=== PATIENT | male | born 1985 | race Caucasian/White ===

== ENCOUNTER 2022-07-21 12:15 | Emergency (ER) | payer OTHER ==
[~2022-07-21] VITALS: Ht 182.9 cm; Wt 99.8 kg
== END 2022-07-21 14:34 | disposition home or self-care (01) ==
LOC: FSED 12:43
DX: S93.501A Unspecified sprain of right great toe, initial encounter (principal); S90.111A Contusion of right great toe without damage to nail, initial encounter; W22.03XA Walked into furniture, initial encounter; Y93.01 Activity, walking, marching and hiking; Y92.89 Other specified places as the place of occurrence of the external cause
CPT/HCPCS: 99282

== ENCOUNTER 2022-08-03 17:13 | Emergency (ER) | payer OTHER ==
[~2022-08-03] VITALS: Ht 182.9 cm; Wt 101.2 kg
[2022-08-03] MEDS ORDERED: KETOROLAC TROMETHAMINE 30 MG/ML VIAL IV SCH (18:00)
[2022-08-03] MEDS ORDERED: SODIUM CHLORIDE 0.9% 1000ML 1,000 ML IV SCH (18:00)
[2022-08-03] MEDS ORDERED: ONDANSETRON HCL INJ 2MG/ML 2ML 2 MG/ML VIAL IV STA (18:05)
[2022-08-03] MEDS ORDERED: IOPAMIDOL 370 MG/ML 100 ML INFUS..BTL INJ ONE (18:23)
[2022-08-03] MEDS ORDERED: DICYCLOMINE HCL20 MG PO (19:45)
[2022-08-03] MEDS ORDERED: ONDANSETRON ODT4 MG PO (19:45)
[2022-08-03 19:54] VITALS: BP 132/62
== END 2022-08-03 19:54 | disposition home or self-care (01) ==
LOC: FSED 17:19
DX: R11.2 Nausea with vomiting, unspecified (principal); K80.20 Calculus of gallbladder without cholecystitis without obstruction; N20.0 Calculus of kidney; R10.33 Periumbilical pain; N28.1 Cyst of kidney, acquired; R19.7 Diarrhea, unspecified; I10 Essential (primary) hypertension
CPT/HCPCS: 74177; 80048; 80076; 81003; 85025; 96374; 96376; 99284; J1885; J2405; J7030; Q9967